=== PATIENT | male | born 1965 | race Caucasian/White ===

== ENCOUNTER 2016-09-15 16:41 | Emergency (ER) | payer OTHER ==
[2016-09-15] MEDS ORDERED: HYDROCODONE/APAP 7.5/325MG TABLET PO STA (18:08)
--- NOTE | 2016-09-15 18:11 | Emergency Department Record ---
History of Present Illness - General Chief Complaint: Ankle/Foot Injury Stated Complaint: INJURY TO LEFT ANKLE Time Seen by Provider: 09/15/16 18:05 Source: Patient, Family Mode of Arrival: Wheelchair Limitations: No limitations - History of Present Illness Initial Comments: 51 yo male presents after fall down a hill. He was cutting a tree and slipped. He landed on another piece of wood injuring his left ankle and leg. He has pain with weight bearing. No injury to the skin or lacerations/punctures. No history of other recent illness. MD Complaint: Leg injury, Ankle injury -: Hour(s) Injury: Ankle: Left Type of Injury: Other Place: Home Severity: Moderate Severity scale (1-10): 8 Improves With: Immobilization Worsens With: Weight bearing Context: Other Associated Symptoms: Swelling, Unable to bear weight - Related Data Home Medications Medication Instructions Recorded Confirmed Last Taken Albuterol Sulfate [Proair Hfa] 1 inh INH ASDIR 09/15/16 09/15/16 Unknown Escitalopram Oxalate [Lexapro] 20 mg PO DAILY 09/15/16 09/15/16 09/15/16 Previous Rx's Medication Instructions Recorded Hydrocodone/Acetaminophen [Alta 1 tab PO Q8H PRN #25 tab 09/15/16 7.5mg/325mg] Allergies Allergy/AdvReac Type Severity Reaction Status Date / Time morphine AdvReac Severe NAUSEA AND Verified 09/15/16 17:56 VOMITING Travel Screening - Travel/Exposure Within Last 30 Days Have you traveled within the last 30 days?: No Review of Systems Constitutional: Denies: Chills, Fever, Malaise, Weakness Eyes: Denies: Eye discharge ENT: Denies: Congestion Respiratory: Denies: Cough, Dyspnea, Hemoptysis, Stridor, Wheezes Cardiovascular: Denies: Chest pain, Palpitations Endocrine: Denies: Fatigue Gastrointestinal: Denies: Abdominal pain, Diarrhea, Nausea, Vomiting Genitourinary: Denies: Dysuria, Frequency, Hematuria Musculoskeletal: Reports: Arthralgia, Joint swelling, Myalgia. Denies: Back pain, Neck pain Skin: Reports: Bruising. Denies: Change in color Neurological: Denies: Confusion, Headache Psychiatric: Denies: Anxiety Hematological/Lymphatic: Denies: Blood Clots, Easy bleeding, Easy bruising Past Medical History - SOCIAL HISTORY Smoking Status: Current every day smoker Alcohol Use: None Drug Use: None - RESPIRATORY Hx Respiratory Disorders: Yes Hx COPD: Yes - CARDIOVASCULAR Hx Cardio Disorders: No - NEURO Hx Neuro Disorders: No - GI Hx GI Disorders: No - Hx Genitourinary Disorders: No - ENDOCRINE Hx Endocrine Disorders: No - MUSCULOSKELETAL Hx Musculoskeletal Disorders: No - PSYCH Hx Psych Problems: Yes Hx Anxiety: Yes - HEMATOLOGY/ONCOLOGY Hx Hematology/Oncology Disorders: No Family Medical History Any Significant Family History?: Yes Hx Cancer: Father *Cancer Comment: brother Physical Exam - General General Appearance: Alert, Oriented x3, Cooperative, No acute distress Limitations: No limitations - Head Head exam: Atraumatic, Normocephalic, Normal inspection - Eye Eye exam: Normal appearance, PERRL. negative: Conjunctival injection, Periorbital swelling, Scleral icterus - ENT ENT exam: Normal exam Ear exam: Normal external inspection Nasal Exam: Normal inspection Mouth exam: Normal external inspection Teeth exam: Normal inspection Throat exam: Normal inspection - Neck Neck exam: Normal inspection, Full ROM. negative: Tenderness - Respiratory Respiratory exam: Normal lung sounds bilaterally. negative: Chest wall tenderness, Decreased breath sounds, Respiratory distress, Rhonchi, Stridor, Wheezes - Cardiovascular Cardiovascular Exam: Regular rate, Normal rhythm, Normal heart sounds Peripheral Pulses: 2+: Dorsalis Pedis (L) - GI/Abdominal GI/Abdominal exam: Soft. negative: Distended, Guarding, Rigid, Tenderness - Rectal Rectal exam: Deferred - exam: Deferred - Extremities Extremities exam: Joint swelling, Normal capillary refill, Tenderness. negative : Normal inspection, Calf tenderness, Full ROM Image of Full Body: 1 - mild left lateral knee tenderness, lateral ankle bruising, minimal swelling , with superficial abrasion, lateral malleolus tenderness, intact sensation and pulses. no deformity or malallignment of the lower leg/foot/ankle - Back Back exam: Reports: Normal inspection, Full ROM. Denies: CVA tenderness (R), CVA tenderness (L), Muscle spasm, Rash noted, Tenderness - Neurological Neurological exam: Alert, Oriented X3. negative: Altered, Motor sensory deficit - Psychiatric Psychiatric exam: Normal affect, Normal mood - Skin Skin exam: Dry, Intact, Normal color, Warm Course Vital Signs 09/15/16 17:52 Temperature 98.4 F Pulse Rate 65 Respiratory 16 Rate Blood Pressure 113/77 Pulse Ox 98 - Reevaluation(s) Reevaluation #1: The patient was seen and examined XR ordered No signs of compartment syndrome on examination, he has lateral bone pain and not soft tissue 09/15/16 18:13 Reevaluation #2: XR reviewed Distal Non displaced tib Fx, no dislocation on my prelim read. He is neurovascular intact He will be referred to the orthopedic specialty clinic 09/15/16 18:35 09/16/16 00:14 Disposition Disposition: Discharge Clinical Impression: Tibia fracture Qualifiers: Encounter type: initial encounter Tibia location: distal Fracture type: closed Fracture alignment: nondisplaced Laterality: left Disposition: Home, Self-Care Return To Work/School Note Provided: Yes Condition: (1) Good Instructions: Ankle Fracture (ED), Leg Fracture (ED) Additional Instructions: Elevate as much as possible to minimize swelling Call tomorrow to confirm your follow up No weight bearing Prescriptions: Hydrocodone/Acetaminophen [Alta 7.5mg/325mg] 1 tab PO Q8H PRN #25 tab PRN Reason: Pain - General Referrals: FRANKI GARCIA [DOCTOR OF OSTEOPATH] - [facility] [Provider Group] Forms: Patient Portal Access Time of Disposition: 18:43
--- NOTE | 2016-09-18 10:21 | RADIOLOGY REPORT ---
EXAM: LEFT ANKLE, THREE VIEWS HISTORY: ACUTE LEFT ANKLE INJURY AND PAIN. TECHNIQUE: Three views of the left ankle were obtained. Comparison: None. Encounter: Initial. FINDINGS: There is an acute oblique transverse fracture of the left medial malleolus with up to 2 mm of medial displacement of the distal fragment. Corticated ossicle subjacent to the lateral malleolus likely due to remote injury. No widening of the syndesmosis. IMPRESSION: ACUTE MINIMALLY DISPLACED FRACTURE OF THE MEDIAL MALLEOLUS OF THE LEFT ANKLE. [facility]: [id number] [facility]
--- NOTE | 2016-09-18 10:22 | RADIOLOGY REPORT ---
EXAM: LEFT KNEE, THREE VIEWS HISTORY: HIT BY ROLLING LOG, LOWER LEFT KNEE PAIN. TECHNIQUE: Three views of the left knee were obtained. Comparison: None. Encounter: Initial. FINDINGS: No bone or joint abnormality. IMPRESSION: NEGATIVE LEFT KNEE EXAMINATION. JOB NUMBER: [id number] [facility]
== END 2016-09-15 19:38 | disposition home or self-care (01) ==
LOC: ER 16:41
DX: S82.302A Unspecified fracture of lower end of left tibia, initial encounter for closed fracture (principal); M25.572 Pain in left ankle and joints of left foot; W01.0XXA Fall on same level from slipping, tripping and stumbling without subsequent striking against object, initial encounter; Y93.H9 Activity, other involving exterior property and land maintenance, building and construction; Y92.007 Garden or yard of unspecified non-institutional (private) residence as the place of occurrence of the external cause
CPT/HCPCS: 99283; 99284

== ENCOUNTER 2016-09-24 06:26 | Day surgery (SDC) | payer OTHER ==
[~2016-09-24 06:26] MED LIST: ACETAMINOPHEN 1000MG/100 ML PREMIX IV ONE; CEFAZOLIN 2 Gram 50 ML IVPB ONE
[2016-09-24 06:56] LABS: BASO % 0.4 % (0-6); EOS % 2.7 % (0-6); GRAN % 56.5 % (47-80); HEMATOCRIT 45.7 % (42.0-52.0); HEMOGLOBIN 15.7 gm/dl (14.0-18.0); LYMPH % 32.5 % (16-45); MEAN CELL VOLUME 90.7 fl (81-97); MEAN CORPUSCULAR HEMOGLOBIN 31.2 pg (27-33); MEAN CORPUSCULAR HGB CONC 34.4 g/dl (32-36); MEAN PLATELET VOLUME 10.1 fl (7.4-10.4); MONO % 7.9 % (0-9); PLATELET COUNT 438 K/uL (130-400); RED BLOOD COUNT 5.04 M/uL (4.40-5.70); RED CELL DISTRIBUTION WIDTH 14.1 % (11.5-14.5); WHITE BLOOD COUNT W/O DIFF 9.6 K/uL (4.2-12.2)
[2016-09-24] MEDS ORDERED: HYDROMORPHONE HCL 2 MG/ML VIAL IV ONE ×2 (13:33→13:35)
[2016-09-24] MEDS ORDERED: ONDANSETRON HCL IV 4 MG/2 ML VIAL IVP ONE (13:33)
[2016-09-24] MEDS ORDERED: HYDROCODONE/APAP 7.5/325MG TABLET PO ONE (13:33)
[2016-09-24] MEDS ORDERED: DESFLURANE 240 ML BTL INH ONE (13:35)
[2016-09-24] MEDS ORDERED: LIDOCAINE 2% MDV (20MG/ML) 20ML VIAL IV ONE (13:35)
[2016-09-24] MEDS ORDERED: PROPOFOL 10 MG/ML VIAL IV ONE (13:35)
[2016-09-24] MEDS ORDERED: MIDAZOLAM HCL 2MG/2ML VIAL IV ONE (13:35)
[2016-09-24] MEDS ORDERED: EPHEDRINE SULFATE 50 MG/ML ML IV ONE (13:35)
--- NOTE | 2016-09-24 16:18 | Operative Note ---
DATE OF SURGERY: 09/24/16 SURGEON: ERIC GARCIA D.O. PREOPERATIVE DIAGNOSIS: DISPLACED FRACTURE OF THE MEDIAL MALLEOLUS OF THE LEFT ANKLE. POSTOPERATIVE DIAGNOSIS: DISPLACED FRACTURE OF THE MEDIAL MALLEOLUS OF THE LEFT ANKLE. OPERATIVE PROCEDURE: OPEN REDUCTION AND INTERNAL FIXATION, MEDIAL MALLEOLUS, LEFT ANKLE. DESCRIPTION: This 51-year-old male was taken to the Operating Room and placed in the supine position on the operating room table. General anesthesia was induced. The left lower extremity was elevated. It was prepped with Hibiclens and draped in the usual sterile fashion. It was exsanguinated and the tourniquet inflated to 200 mmHg around the proximal calf. A curvilinear incision was made over the medial malleolus and dissection was carried down through the skin and subcutaneous tissue. Hemostasis was obtained with electrocautery. The fracture site was easily identified. The periosteum was incised and elevated to expose the fracture. The fracture was and irrigated and curetted to remove clot and debris from the fracture site. The fracture was then manipulated to anatomic reduction and a guidewire was placed across the fracture site. The image intensifier was brought in to confirm position and alignment and it was found to be satisfactory. Subsequently, the guidewire was measured, the appropriate length screw was identified, the hole drilled, and a size 54 mm cannulated 4.5 Synthes screw was advanced across the fracture site. This gave us an extremely tight fit and we did not feel that we needed any further fixation due to the solid purchase of the screw and anatomic reduction of the fracture. The image intensifier was then brought into the operative field and again the x-ray confirmed anatomic position and alignment of the fracture and the wound was again irrigated. The subcutaneous tissue was closed with 4-0 Vicryl and the skin closed with a running 4-0 nylon suture. Sterile dressings with plaster splint immobilization was applied. Posterior [id number] was applied with the ankle flexed at 90 degrees. The patient was then awaken and taken to the Recovery Room in satisfactory condition. GROSS PATHOLOGY: This patient demonstrated displaced fracture of the medial malleolus, which was opened and reduced in the matter described above and fixed with a 4.5 cannulated Synthes screw. Eric Garcia D.O. Date & Time JOB NUMBER: [id number] [facility]
== END 2016-09-24 11:00 | disposition home or self-care (01) ==
LOC: SUR 06:26
PROVIDERS: ATTEND Orthopaedic Surgery
DX: S82.52XA Displaced fracture of medial malleolus of left tibia, initial encounter for closed fracture (principal); J44.9 Chronic obstructive pulmonary disease, unspecified; F17.200 Nicotine dependence, unspecified, uncomplicated
CPT/HCPCS: 27766; 01480; 85025; 76000; 93005; 93010; C1769; J2405; J1170; J0690

== ENCOUNTER 2018-10-22 19:42 | Emergency (ER) | payer BC, OTHER ==
[2018-10-22] MEDS ORDERED: ONDANSETRON HCL IV 4 MG/2 ML VIAL IVP ONE (19:52)
[2018-10-22] MEDS ORDERED: KETOROLAC 30 MG/ML VIAL IVP ONE (19:52)
[2018-10-22] MEDS ORDERED: 0.9 % SODIUM CHLORIDE 1000ML 1,000 ML IV SCH (20:00)
--- NOTE | 2018-10-22 20:10 | Emergency Department Record ---
History of Present Illness - General Chief complaint: Vomiting Stated complaint: VOMITING Time Seen by Provider: 10/22/18 19:52 Source: Patient Mode of Arrival: Ambulatory Limitations: No limitations - History of Present Illness Initial comments: 53 yo male presents to ED for evaluation of nausea, vomiting, fever, and body aches for the past 3 days. Patient reports that his has been ill with similar symptoms, denies health problems other than intermittent pneumonia at his baseline. Patient reports taking Tylenol and Motrin as needed for his symptoms. MD complaint: Nausea, Vomiting Onset/Timin -: Days(s) Description of Vomiting: Bilious Radiation: None Quality: Aching Consistency: Constant Improves with: None Worsens with: None Associated Symptoms: Cough, Fever/chills - Related Data Previous Rx's Medication Instructions Recorded Ondansetron [Zofran Odt] 4 mg PO Q8H PRN #15 tab.rapdis 10/22/18 Oseltamivir Phosphate [Tamiflu] 75 mg PO BID #10 capsule 10/22/18 Allergies Allergy/AdvReac Type Severity Reaction Status Date / Time morphine AdvReac Severe NAUSEA AND Verified 09/15/16 17:56 VOMITING Travel Screening - Travel/Exposure Within Last 30 Days Have you traveled within the last 30 days?: No - Travel Symptoms Symptom Screening: Vomiting Review of Systems Constitutional: Reports: Chills, Fever, Malaise Eyes: Denies: Eye discharge, Eye pain ENT: Denies: Congestion, Ear pain Respiratory: Reports: Cough. Denies: Dyspnea Cardiovascular: Denies: Chest pain, Dyspnea on exertion Endocrine: Denies: Fatigue, Heat or cold intolerance Gastrointestinal: Reports: Nausea, Vomiting. Denies: Abdominal pain Genitourinary: Denies: Incontinence, Retention Musculoskeletal: Reports: Myalgia. Denies: Arthralgia Skin: Denies: Bruising, Change in color Neurological: Reports: Headache. Denies: Abnormal gait, Confusion, Seizure Psychiatric: Denies: Anxiety Hematological/Lymphatic: Denies: Anemia, Blood Clots Past Medical History - SOCIAL HISTORY Smoking Status: Current every day smoker Alcohol Use: Rare Drug Use: Heavy Drug Use Detail:: Marijuana - RESPIRATORY Hx Respiratory Disorders: Yes Hx COPD: Yes Hx Pneumonia: Yes Comment:: use inhaler - CARDIOVASCULAR Hx Cardio Disorders: No - NEURO Hx Neuro Disorders: Yes Hx of Migraines: Yes - GI Hx GI Disorders: Yes Comment:: hemorhoids; fixed outpatient; - Hx Genitourinary Disorders: No - ENDOCRINE Hx Endocrine Disorders: No - MUSCULOSKELETAL Hx Musculoskeletal Disorders: No - PSYCH Hx Psych Problems: Yes Hx Anxiety: Yes - HEMATOLOGY/ONCOLOGY Hx Hematology/Oncology Disorders: No Family Medical History Any Significant Family History?: Yes Hx Cancer: Father, Brother/Sister *Cancer Comment: brother Physical Exam - General General Appearance: Alert, Oriented x3, Cooperative, Moderate distress Limitations: No limitations - Head Head exam: Atraumatic, Normocephalic, Normal inspection Head exam detail: negative: Abrasion, Contusion, Walker's sign, General tenderness, Hematoma, Laceration - Eye Eye exam: Normal appearance. negative: Conjunctival injection, Periorbital swelling, Periorbital tenderness, Scleral icterus - ENT Ear exam: negative: Auricular hematoma, Auricular trauma Nasal Exam: negative: Active bleeding, Discharge, Dried blood, Foreign body Mouth exam: negative: Drooling, Laceration, Muffled voice, Tongue elevation - Neck Neck exam: Normal inspection. negative: Meningismus, Tenderness - Respiratory Respiratory exam: Normal lung sounds bilaterally. negative: Rales, Respiratory distress, Rhonchi, Stridor - Cardiovascular Cardiovascular Exam: Regular rate, Normal rhythm, Normal heart sounds - GI/Abdominal GI/Abdominal exam: Soft, Tenderness (TTP epigastric region, "from vomiting" per patient.). negative: Rebound, Rigid - Rectal Rectal exam: Deferred - exam: Deferred - Extremities Extremities exam: Normal inspection. negative: Pedal edema, Tenderness - Back Back exam: Denies: CVA tenderness (R), CVA tenderness (L) - Neurological Neurological exam: Alert, Normal gait, Oriented X3 - Psychiatric Psychiatric exam: Normal affect, Normal mood - Skin Skin exam: Normal color. negative: Abrasion Type of lesion: negative: abrasion Course Vital Signs 10/22/18 19:49 Temperature 98.8 F Pulse Rate [ 77 Left] Respiratory 18 Rate Blood Pressure 121/78 [Left Arm] Pulse Ox 98 - Reevaluation(s) Reevaluation #1: 10/22/18 20:35 Laboratory studies were reviewed, patient is positive for influenza A, labs are otherwise grossly unremarkable for an acute process. Reevaluation #2: 10/22/18 20:59 CXR: Hyperinflation No acute process Patient was updated on all results, reports that his body aches are greatly improved. Patient was started on Tamiflu, appears stable for discharge on Tamiflu and Zofran as directed. Patient and his are in agreement with the plan of care as discussed. Medical Decision Making - Lab Data Result diagrams: 10/22/18 20:00 10/22/18 20:00 Disposition Disposition: Discharge Clinical Impression: Influenza A Nausea & vomiting Qualifiers: Vomiting type: unspecified Vomiting Intractability: non-intractable Qualified Code(s): R11.2 - Nausea with vomiting, unspecified Disposition: Home, Self-Care Condition: (2) Stable Instructions: Acute Nausea and Vomiting (ED) Additional Instructions: Return to ED if your symptoms worsen or if you have any concerns. Tamiflu and Zofran as directed. Follow-up with your family doctor in 1-3 days as directed. Prescriptions: Ondansetron [Zofran Odt] 4 mg PO Q8H PRN #15 tab.rapdis PRN Reason: Nausea/Vomiting Oseltamivir Phosphate [Tamiflu] 75 mg PO BID #10 capsule Forms: Patient Portal Access Time of Disposition: 21:01 Quality - Quality Measures Quality Measures: N/A - Blood Pressure Screening Does Patient Have Any of the Following: No Blood Pressure Classification: Pre-Hypertensive BP Reading Systolic Measurement: 121 Diastolic Measurement: 78 Screening for High Blood Pressure: < Pre-Hypertensive BP, F/U Documented > [ [id number]] Pre-Hypertensive Follow-up Interventions: Referral to alternative/primary care provider.
[2018-10-22 20:12] LABS: BASO % 0.2 % (0-6); HEMATOCRIT 43.8 % (42.0-52.0); HEMOGLOBIN 15.1 gm/dl (14.0-18.0); LYMPH % 9.9 % (16-45); MEAN CELL VOLUME 88.7 fl (81-97); MEAN CORPUSCULAR HEMOGLOBIN 30.6 pg (27-33); MEAN CORPUSCULAR HGB CONC 34.5 g/dl (32-36); MEAN PLATELET VOLUME 10.2 fl (7.4-10.4); MONO % 8.9 % (0-9); PLATELET COUNT 248 K/uL (130-400); RED BLOOD COUNT 4.94 M/uL (4.40-5.70); RED CELL DISTRIBUTION WIDTH 14.4 % (11.5-14.5); WHITE BLOOD COUNT W/O DIFF 9.5 K/uL (4.2-12.2)
[2018-10-22 20:20] LABS: BLOOD UREA NITROGEN 21 mg/dL (6-20); CREATININE 0.9 mg/dL (0.7-1.2); EST GLOMERULAR FILTRATION RATE > 60 mL/min; LIPASE 24 U/L (13-60)
[2018-10-22 20:22] LABS: GLUCOSE,RANDOM 109 mg/dL (74-109)
[2018-10-22 20:25] LABS: ALB/GLOB RATIO 1.1 (1.1-1.8); ALBUMIN 4.1 g/dL (4.0-5.0); ALKALINE PHOSPHATASE 116 U/L (40-129); ALT/SGPT 21 U/L (<41); AST/SGOT 46 U/L (10.0-50.0)
[2018-10-22 20:26] LABS: INFLUENZA A POSITIVE (NEGATIVE); INFLUENZA B NEGATIVE (NEGATIVE)
[2018-10-22] MEDS ORDERED: OSTELTAMIVIR 75 MG CAP PO ONE (20:59)
[2018-10-22] MEDS ORDERED: ONDANSETRON 4 MG ODT TABLET SL ONE (20:59)
--- NOTE | 2018-10-25 17:37 | RADIOLOGY REPORT ---
EXAM: CHEST 2 VIEWS HISTORY: COUGH AND FEVER. TECHNIQUE: PA and lateral views. COMPARISON: No prior chest x-ray with which to compare. FINDINGS: Heart size is normal. The lungs appear somewhat hyperinflated suggesting underlying COPD. There is probably some minor fibrosis in the upper lungs as well. No acute alveolar infiltrate seen and no pleural effusion or pneumothorax evident. IMPRESSION: 1. LUNGS APPEAR SOMEWHAT HYPERINFLATED SUGGESTING COPD. THERE IS PROBABLY SOME MILD FIBROSIS IN THE UPPER LUNGS WELL. 2. NO ACUTE ALVEOLAR INFILTRATE IDENTIFIED. JOB NUMBER: [id number] [facility]
== END 2018-10-22 21:15 | disposition home or self-care (01) ==
LOC: ER 19:42
DX: J10.1 Influenza due to other identified influenza virus with other respiratory manifestations (principal); R11.2 Nausea with vomiting, unspecified; R10.13 Epigastric pain; J44.9 Chronic obstructive pulmonary disease, unspecified; F17.210 Nicotine dependence, cigarettes, uncomplicated
CPT/HCPCS: 99284 ×2; 96374; 96375; 96361; 83690; 85025; 80053; 87400; 71046; J1885; J2405; J7030

== ENCOUNTER 2018-10-25 19:22 | Emergency (ER) | payer BC ==
[2018-10-25] MEDS ORDERED: ONDANSETRON HCL IV 4 MG/2 ML VIAL IVP ONE (19:28)
[2018-10-25] MEDS ORDERED: 0.9 % SODIUM CHLORIDE 1000ML 1,000 ML IV SCH (19:30)
--- NOTE | 2018-10-25 19:33 | Emergency Department Record ---
History of Present Illness - General Chief Complaint: Shortness of breath Stated Complaint: LISSA,TIGHTNESS IN CHEST Time Seen by Provider: 10/25/18 19:23 Source: Patient Mode of Arrival: Ambulatory Limitations: No limitations - History of Present Illness Initial Comments: 53 yo male presents to ED for evaluation of continues weakness, fevers, and muscle aches. Patient reports that he was diagnosed with influenza earlier in the week, reports increased cough and productive cough symptoms. Patient reports that his nausea/vomiting symptoms have improved, however his appetite is still very low. Patient denies health problems at his baseline. MD Complaint: Shortness of breath Onset/Timin -: Days(s) Severity: Moderate Quality: Aching Consistency: Constant Improves With: Nothing Worsens With: Nothing Context: Recent illness, Recent URI Treatments Prior to Arrival: Other (Tamiflu) - Related Data Home Oxygen Therapy: No Previous Rx's Medication Instructions Recorded Ondansetron [Zofran Odt] 4 mg PO Q8H PRN #15 tab.rapdis 10/22/18 Oseltamivir Phosphate [Tamiflu] 75 mg PO BID #10 capsule 10/22/18 Allergies Allergy/AdvReac Type Severity Reaction Status Date / Time morphine AdvReac Severe NAUSEA AND Verified 09/15/16 17:56 VOMITING Review of Systems Constitutional: Reports: Fever, Malaise, Night sweats, Weakness. Denies: Chills Eyes: Denies: Eye discharge, Eye pain ENT: Denies: Congestion, Ear pain, Epistaxis Respiratory: Reports: Cough. Denies: Dyspnea Cardiovascular: Reports: Dyspnea on exertion. Denies: Chest pain, Palpitations Endocrine: Reports: Fatigue. Denies: Heat or cold intolerance Gastrointestinal: Denies: Nausea, Vomiting Genitourinary: Denies: Incontinence, Retention Musculoskeletal: Reports: Myalgia. Denies: Arthralgia, Back pain Skin: Denies: Bruising, Change in color Neurological: Denies: Abnormal gait, Confusion, Headache, Seizure Psychiatric: Denies: Anxiety Hematological/Lymphatic: Denies: Anemia, Blood Clots Past Medical History - SOCIAL HISTORY Drug Use: None - RESPIRATORY Hx Respiratory Disorders: Yes Hx COPD: Yes Hx Pneumonia: Yes Comment:: use inhaler - CARDIOVASCULAR Hx Cardio Disorders: No - NEURO Hx Neuro Disorders: Yes Hx of Migraines: Yes - GI Hx GI Disorders: Yes Comment:: hemorhoids; fixed outpatient; - Hx Genitourinary Disorders: No - ENDOCRINE Hx Endocrine Disorders: No - MUSCULOSKELETAL Hx Musculoskeletal Disorders: No - PSYCH Hx Psych Problems: Yes Hx Anxiety: Yes - HEMATOLOGY/ONCOLOGY Hx Hematology/Oncology Disorders: No Family Medical History Hx Cancer: Father, Brother/Sister *Cancer Comment: brother Physical Exam - General General Appearance: Alert, Oriented x3, Cooperative, Moderate distress Limitations: No limitations - Head Head exam: Atraumatic, Normocephalic, Normal inspection Head exam detail: negative: Abrasion, Contusion, Walker's sign, General tenderness, Hematoma, Laceration - Eye Eye exam: Normal appearance. negative: Conjunctival injection, Periorbital swelling, Periorbital tenderness, Scleral icterus - ENT Ear exam: negative: Auricular hematoma, Auricular trauma Nasal Exam: negative: Active bleeding, Discharge, Dried blood, Foreign body Mouth exam: negative: Drooling, Laceration, Muffled voice, Tongue elevation - Neck Neck exam: Normal inspection. negative: Meningismus, Tenderness - Respiratory Respiratory exam: Normal lung sounds bilaterally. negative: Rales, Respiratory distress, Rhonchi, Stridor, Wheezes - Cardiovascular Cardiovascular Exam: Regular rate, Normal rhythm, Normal heart sounds - GI/Abdominal GI/Abdominal exam: Soft. negative: Rebound, Rigid, Tenderness - Rectal Rectal exam: Deferred - exam: Deferred - Extremities Extremities exam: Normal inspection. negative: Pedal edema, Tenderness - Back Back exam: Denies: CVA tenderness (R), CVA tenderness (L) - Neurological Neurological exam: Alert, Normal gait, Oriented X3 - Psychiatric Psychiatric exam: Normal affect, Normal mood - Skin Skin exam: Normal color. negative: Abrasion Type of lesion: negative: abrasion Course - Reevaluation(s) Reevaluation #1: 10/25/18 19:34 EKG: NSR 75 Normal axis, normal axis No acute ST-T wave changes Reevaluation #2: 10/25/18 20:11 Laboratory studies were reviewed and are grossly unremarkable for an acute process. Reevaluation #3: 10/25/18 21:03 CXR: No acute process No clinical evidence for pneumonia on examination. Patient and his SO were updated on all results, reports that he is feeling better. Patient has been taking Zofran and Tamiflu as directed, appears stable for discharge with continued outpatient treatment. Medical Decision Making - Lab Data Result diagrams: 10/25/18 19:35 10/25/18 19:35 Disposition Disposition: Discharge Clinical Impression: Influenza A Disposition: Home, Self-Care Condition: (2) Stable Instructions: Influenza (ED) Additional Instructions: Return to ED if your symptoms worsen or if you have any concerns. Follow-up with your family doctor in 3-5 days as directed. Forms: Patient Portal Access Time of Disposition: 21:08 Quality - Quality Measures Quality Measures: N/A - Blood Pressure Screening Does Patient Have Any of the Following: No Blood Pressure Classification: Normal BP Reading Systolic Measurement: 119 Diastolic Measurement: 76 Screening for High Blood Pressure: < Normal BP, F/U Not Required > [G8783]
[2018-10-25 19:45] LABS: BASO % 0.4 % (0-6); HEMATOCRIT 40.2 % (42.0-52.0); HEMOGLOBIN 14.1 gm/dl (14.0-18.0); LYMPH % 8.4 % (16-45); MEAN CELL VOLUME 88.5 fl (81-97); MEAN CORPUSCULAR HEMOGLOBIN 31.1 pg (27-33); MEAN CORPUSCULAR HGB CONC 35.1 g/dl (32-36); MEAN PLATELET VOLUME 10.7 fl (7.4-10.4); MONO % 5.5 % (0-9); PLATELET COUNT 236 K/uL (130-400); RED BLOOD COUNT 4.54 M/uL (4.40-5.70); RED CELL DISTRIBUTION WIDTH 14.3 % (11.5-14.5); WHITE BLOOD COUNT W/O DIFF 11.7 K/uL (4.2-12.2)
[2018-10-25 19:54] LABS: BLOOD UREA NITROGEN 16 mg/dL (6-20); CREATININE 0.7 mg/dL (0.7-1.2); EST GLOMERULAR FILTRATION RATE > 60 mL/min
[2018-10-25 19:55] LABS: LIPASE 36 U/L (13-60); TOTAL PROTEIN 7.4 g/dL (6.6-8.7)
[2018-10-25 19:57] LABS: GLUCOSE,RANDOM 146 mg/dL (74-109)
[2018-10-25 19:59] LABS: ALB/GLOB RATIO 0.9 (1.1-1.8); ALBUMIN 3.6 g/dL (4.0-5.0); ALKALINE PHOSPHATASE 116 U/L (40-129); ALT/SGPT 23 U/L (<41); AST/SGOT 24 U/L (10.0-50.0)
[2018-10-25 20:07] LABS: ANISOCYTOSIS 1+; PLATELET ESTIMATE NORMAL (NORMAL); TOXIC GRANULATION 1+
--- NOTE | 2018-10-27 06:17 | RADIOLOGY REPORT ---
EXAM: CHEST, TWO VIEWS HISTORY: SHORT OF BREATH. TECHNIQUE: PA and lateral views of the chest were obtained. FINDINGS: The lungs are clear. No lobar consolidation is seen. The heart and pulmonary vessels are normal. IMPRESSION: NO ACUTE INTRATHORACIC PROCESS. JOB NUMBER: [id number] [facility]
== END 2018-10-25 21:20 | disposition home or self-care (01) ==
LOC: ER 19:22
DX: J10.1 Influenza due to other identified influenza virus with other respiratory manifestations (principal); R06.02 Shortness of breath; R53.1 Weakness; J44.9 Chronic obstructive pulmonary disease, unspecified; F17.210 Nicotine dependence, cigarettes, uncomplicated
CPT/HCPCS: 71046; 80053; 83690; 85027; 93005; 93010; 96374; 99284; J2405; J7030